=== PATIENT | female | born 2000 | race Caucasian/White ===

== ENCOUNTER 2018-07-26 11:54 | Emergency (ER) | payer SELFPAY ==
[2018-07-26] MEDS ORDERED: BUSPIRONE HCL 10 MG TABLET PO ONE (12:06)
--- NOTE | 2018-07-26 12:10 | ER Document Report ---
ED General - General Chief Complaint: Anxiety Stated Complaint: POSSIBLE PANIC ATTACKS Time Seen by Provider: 07/26/18 12:02 Mode of Arrival: Ambulatory Information source: Patient Notes: Chief complaint: Anxious History of complain:( obtained from----patient) 18 years old female with a hist ory of panic disorder has not been taking any medication, last night had an argument with the boyfriend. Started feeling chest pain and difficulty in breathing, panicked. Therefore present to the ED. Has calmed down a lot. Denies any suicidal or homicidal ideation. Also having vaginal spotting. Wondering whether she is . Onset: As above Duration: sudden Severity: Mild to moderate Quality: As above Context: As above Exacerbating factor and relieving factors: As above REVIEW OF SYSTEMS: CONSTITUTIONAL : Denies fever, chills, or sweats. Denies recent illness. EENT: Denies eye, ear, throat, or mouth pain or symptoms. Denies nasal or sinus congestion or discharge. Denies throat, tongue, or mouth swelling or difficulty swallowing. CARDIOVASCULAR: Denies chest pain. Denies palpitations or racing or irregular heart beat. Denies ankle edema. RESPIRATORY: Denies cough, cold, or chest congestion. Denies shortness of breath, difficulty breathing, or wheezing. GASTROINTESTINAL: Denies distention. Denies nausea, vomiting, or diarrhea. Denies blood in vomitus, stools, or per rectum. Denies black, tarry stools. Denies constipation. GENITOURINARY: Denies difficulty urinating, painful urination, burning, frequency, blood in urine, or discharge. FEMALE GENITOURINARY: Denies vaginal bleeding, heavy or abnormal periods, irregular periods. Denies vaginal discharge or odor. MUSCULOSKELETAL: Denies back or neck pain or stiffness. Denies joint pain or swelling. SKIN: Denies rash, lesions or sores. HEMATOLOGIC : Denies easy bruising or bleeding. LYMPHATIC: Denies swollen, enlarged glands. NEUROLOGICAL: Denies confusion or altered mental status. Denies passing out or loss of consciousness. Denies dizziness or lightheadedness. Denies headache. Denies weakness or paralysis or loss of use of either side. Denies problems with gait or speech. Denies sensory loss, numbness, or tingling. Denies seizures. PSYCHIATRIC: Denies anxiety or stress. Denies depression, suicidal ideation, or homicidal ideation. ALL OTHER SYSTEMS REVIEWED AND NEGATIVE. PHYSICAL EXAMINATION: GENERAL: Well-appearing, well-nourished and in no acute distress. Obese HEAD: Atraumatic, normocephalic. EYES: Pupils equal round and reactive to light, extraocular movements intact, conjunctiva are normal. ENT: Nares patent, oropharynx clear without exudates. Moist mucous membranes. NECK: Normal range of motion, supple without lymphadenopathy LUNGS: Breath sounds clear to auscultation bilaterally and equal. No wheezes rales or rhonchi. HEART: Regular rate and rhythm without murmurs PSYCH: Appears depressed, but not suicidal or homicidal. SKIN: Warm, Dry, normal turgor, no rashes or lesions noted. Dictation was performed using [employer] voice recognition software TRAVEL OUTSIDE OF THE [place] IN LAST 30 DAYS: No - HPI Notes: Dictated - Related Data Allergies/Adverse Reactions: No Known Allergies Allergy (Verified 07/26/18 11:55) Past Medical History - Social History Smoking Status: Never Smoker Frequency of alcohol use: None Drug Abuse: None Lives with: Family Family History: Reviewed & Not Pertinent Review of Systems - Review of Systems Notes: Dictated Physical Exam - Vital signs Vitals: Temp Pulse Resp BP Pulse Ox 98.4 F 83 18 119/85 99 07/26/18 11:59 07/26/18 11:59 07/26/18 11:59 07/26/18 11:59 07/26/18 11:59 - Notes Notes: Dictated Course - Vital Signs Vital signs: Temp Pulse Resp BP Pulse Ox 98.5 F 76 18 116/75 99 07/26/18 14:45 07/26/18 14:45 07/26/18 14:45 07/26/18 14:45 07/26/18 14:45 - Laboratory Result Diagrams: 07/26/18 12:29 Discharge - Discharge Clinical Impression: History of panic attacks Condition: Stable Disposition: HOME, SELF-CARE Instructions: Panic Attack ([facility]) Additional Instructions: *You have been evaluated for panic attacks *Take medication as prescribed *Follow up with mental health, community resources within one week *Return to ED for worsening condition, changes, needs *Return to ED if not better in 24 hours Prescriptions: Buspirone HCl [Buspar 5 mg Tablet] 1 tab PO DAILY #14 tab
[2018-07-26 12:49] LABS: ABSOLUTE LYMPHOCYTES (AUTO) 1.9 10^3/uL (0.5-4.7); ABSOLUTE MONOCYTES (AUTO) 0.4 10^3/uL (0.1-1.4); ABSOLUTE NEUT (AUTO) 4.6 10^3/uL (1.7-8.2); BASOPHILS % (AUTO) 0.6 % (0-2); EOSINOPHILS % (AUTO) 0.7 % (0-6); HEMATOCRIT 44.3 % (36.0-47.0); HEMOGLOBIN 15.2 g/dL (12.0-15.5); LYMPHOCYTES % (AUTO) 26.8 % (13-45); MEAN CORPUSCULAR HEMOGLOBIN 29.6 pg (27.0-33.4); MEAN CORPUSCULAR HGB CONC 34.4 g/dL (32.0-36.0); MEAN CORPUSCULAR VOLUME 86 fl (80-97); MONOCYTES % (AUTO) 5.8 % (3-13); PLATELET COUNT 252 10^3/uL (150-450); RED BLOOD COUNT 5.14 10^6/uL (3.72-5.28); RED CELL DISTRIBUTION WIDTH 13.7 % (11.5-14.0); SEGMENTED NEUTROPHILS % (AUTO) 66.1 % (42-78); TOTAL CELLS COUNTED % (AUTO) 100 %
--- NOTE | 2018-07-26 13:32 | ER Document Report ---
ED General - General Chief Complaint: Anxiety Stated Complaint: POSSIBLE PANIC ATTACKS Time Seen by Provider: 07/26/18 12:02 Mode of Arrival: Ambulatory Information source: Patient Notes: Patient presents emergency department with complaints of panic attacks. She reports history of panic attacks. She just moved here from [place] approximately 1 month ago. She reports last night she had panic attacks which she describes as her hard to breathe usually in her back and then her front she says that this occurred last night for 4 hours back to back. She also reports one this morning when she woke up. TRAVEL OUTSIDE OF THE [place] IN LAST 30 DAYS: No - HPI Onset: Yesterday Quality of pain: No pain Associated symptoms: None Exacerbated by: Denies Relieved by: Denies Similar symptoms previously: Yes Recently seen / treated by doctor: No - Related Data Allergies/Adverse Reactions: No Known Allergies Allergy (Verified 07/26/18 11:55) Past Medical History - General Information source: Patient Last Menstrual Period: current - Social History Smoking Status: Never Smoker Cigarette use (# per day): No Frequency of alcohol use: None Drug Abuse: None Lives with: Family Family History: Reviewed & Not Pertinent Patient has suicidal ideation: No Patient has homicidal ideation: No - Medical History Medical History: Negative Renal/ Medical History: Denies: Hx Peritoneal Dialysis Psychiatric Medical History: Reports: Other - panic attacks Review of Systems - Review of Systems Notes: Review HPI for review of systems., All other systems negative Physical Exam - Vital signs Vitals: Temp Pulse Resp BP Pulse Ox 98.4 F 83 18 119/85 99 07/26/18 11:59 07/26/18 11:59 07/26/18 11:59 07/26/18 11:59 07/26/18 11:59 - Notes Notes: PHYSICAL EXAMINATION: GENERAL: Well-appearing and in no acute distress HEAD: Atraumatic, normocephalic. EYES: Pupils equal round, extraocular movements intact, sclera anicteric, conjunctiva are normal. ENT: nares patent, Moist mucous membranes. NECK: Normal range of motion, supple without lymphadenopathy LUNGS: CTAB and equal. No wheezes rales or rhonchi. HEART: Regular rate and rhythm without murmurs EXTREMITIES: Normal range of motion NEUROLOGICAL: Cranial nerves grossly intact. Normal sensory/motor exams. PSYCH: Normal mood, normal affect. SKIN: Warm, Dry, normal turgor Course - Re-evaluation Re-evalutation: 07/26/18 13:34 Patient is calm. She is worried she might be . Instructed on negative test. Patient will be evaluated by mental health for community resources. She denies suicidal or homicidal ideations. She is living with her boyfriend's family. I feel patient is safe to go home. Dictation of this chart was performed using voice recognition software; therefore, there may be some unintended grammatical errors. 07/26/18 Mental health has been into talk with patient. They have given her community resources. Patient reports BuSpar is very helpful keeping her calm. Patient was instructed on the importance of follow-up with mental health. Was understanding to all instructions. Her boyfriends mother is at the bedside and a positive support system. - Vital Signs Vital signs: Temp Pulse Resp BP Pulse Ox 98.5 F 76 18 116/75 99 07/26/18 14:45 07/26/18 14:45 07/26/18 14:45 07/26/18 14:45 07/26/18 14:45 - Laboratory Result Diagrams: 07/26/18 12:29 Discharge - Discharge Clinical Impression: History of panic attacks Condition: Stable Disposition: HOME, SELF-CARE Instructions: Panic Attack ([facility]) Additional Instructions: *You have been evaluated for panic attacks *Take medication as prescribed *Follow up with mental health, community resources within one week *Return to ED for worsening condition, changes, needs *Return to ED if not better in 24 hours Prescriptions: Buspirone HCl [Buspar 5 mg Tablet] 1 tab PO DAILY #14 tab
[2018-07-26 14:47] VITALS: BP 116/75
--- NOTE | 2018-07-28 13:04 | PSYCHOLOGICAL NOTE ---
Psych Note - Psych Note Date seen by psych provider: 07/26/18 Time seen by psych provider: 14:00 Psych Note: Reason for Consult: anxiety/ panic attacks Consent permissions: Boyfriengabbi's mother at bedside per patient's request 18 years old female with a history of panic disorder has not been taking any medication, last night had an argument with the boyfriend. Started feeling chest pain and difficulty in breathing, panicked. Therefore present to the ED. Has calmed down a lot. Denies any suicidal or homicidal ideation. Patient discloses that she is has a long history of anxiety and depression and has recently moved here from [place]. She reports that last night there was a misunderstanding and started having a panic attack. She reports that she attempted to use multiple coping skills but nothing seemed to help. She confirms she is on any medications for her anxiety and reports that she was on some a long time ago however is unable to remember the name. She states she just moved here locally approximately 1 month ago. Boyfriend's mother reports the patient moved here to help her boyfriend and family to the of the boyfriend's grandmother. She originally was going to be staying with a friend however upon arrival the friend presented an ultimatum and then kicked the patient out. With no place to live the patient has been living with her boyfriend and family. She discloses that this is the first time the patient's boyfriend has had a serious relationship and the patient has felt pushed into a more significant relationship because they are not living together. While there were not breaking up they have been adjusting to the circumstances that were unexpected i.e. living together. While discussing the concerns the patient thought that her boyfriend was breaking up with her which caused a panic attack. She reports the patient is very good at using her coping skills of going out with the animals such as running with her dog or sitting with the horse. She confirms that the patient did have difficulty engaging in some of these coping skills because the weather has been very poor lately (raining). Patient is alert and orientated to person, place, time and circumstance. Mood is euthymic with congruent affect. Clinician notes patient received medication to help assist with calming her and she reports currently she feels much better. Patient denies suicidal homicidal ideation. Delusions are absent behaviors congruent with an intact reality based presentation i.e. organized and linear thought process. Eye contact was well-maintained. Conversational speech is within normal rate, tone and prosody. Intellectual abilities appear to be within the average range. Attention and concentration were good. Insight, judgment, impulse control are currently good. Medication recommendations per [facility] contracted psychiatrist Dr. Kemi OSORIO are as follows BuSpar 5 mg daily 300.00 (F41.9) unspecified anxiety disorder per history provided by patient 311 (F32.9) unspecified depressive disorder per history provided by patient Impression\plan: Patient is cleared from acute psychiatric services. Patient came to [facility] ED with concerns of increased anxiety and panic attacks. Patient has not been on medications recently and reports having difficulty engaging in her normal coping skills. There are significant social factors that have affected patient's anxiety such as moving to [place] 1 month ago and unex pectedly having to live with her boyfriend and his family. Medication recommendations have been provided. Patient was provided a local resource list of area providers including mobile crisis contact information. Dr. Gomez was consulted and the care management this patient cervical attending physicians agreement with recommendations and disposition.
== END 2018-07-26 14:47 | disposition home or self-care (01) ==
LOC: ER 11:54
DX: F41.0 Panic disorder [episodic paroxysmal anxiety] (principal); Z32.02 Encounter for pregnancy test, result negative
CPT/HCPCS: 36415; 84702; 85025; 99283

== ENCOUNTER → 2018-09-12 | Outpatient (CLI) | payer MEDICAID ==
--- NOTE | 2018-09-12 17:09 | RADIOLOGY REPORT (SQ) ---
EXAM DESCRIPTION: U/S [id number] TRNABD 1GES W/ODOP COMPLETED DATE/TIME: 09/12/2018 3:40 pm REASON FOR STUDY: Z34.81 ENCOUNTER FOR SUPRVSN OF NORMAL , FIRST TRIMESTER Z34.81 ENCOUNTE R FOR SUPRVSN OF NORMAL , FIRST TRIM COMPARISON: None. TECHNIQUE: Transvaginal and transabdominal static and realtime grayscale images acquired of the pelv is. Additional selected spectral and color Doppler images recorded. All images stored on PACs. CLINICAL AGE: 9 week 5 day. bHCG: Not available. LIMITATIONS: None. FINDINGS: UTERUS: No masses. No anomalies. GESTATIONAL SAC: Normal shape. Measurement corresponds with a 5 week 5 day gestation. YOLK SAC: Yes. POLE: None present. RIGHT ADNEXA: Normal ovary with normal vascular flow. No adnexal free fluid. No adnexal masses. LEFT ADNEXA: Normal ovary with normal vascular flow. No adnexal free fluid. No adnexal masses. FREE FLUID: None. OTHER: No other significant finding. IMPRESSION: POSSIBLE EARLY INTRAUTERINE . BHCG LEVEL NOT AVAILABLE FOR CORRELATION WITH US FINDINGS. CONSIDER F/U BHCG AND/OR ULTRASOUND FOR VERIFICATION AND TO EXCLUDE ECTOPIC . Trimester of : First - 0 to 13 weeks. TECHNICAL DOCUMENTATION: JOB ID: [id number] [employer]- All Rights Reserved Reading location - IP/workstation name: [email or web address]
== END ==
LOC: RAD 14:49
PROVIDERS: ATTEND Midwife
DX: Z34.81 Encounter for supervision of other normal pregnancy, first trimester (principal)
CPT/HCPCS: 76801

== ENCOUNTER 2018-09-25 15:35 | Emergency (ER) | payer MEDICAID ==
[2018-09-25 16:05] VITALS: BP 123/70
--- NOTE | 2018-09-25 16:50 | ER Document Report ---
ED Medical Screen (RME) - General Chief Complaint: Vag Bleeding, +preg <12wks Stated Complaint: VAGINAL BLEEDING Time Seen by Provider: 09/25/18 16:36 Primary Care Provider: ISABELA BAEZA CNM [Primary Care Provider] - Follow up as needed Mode of Arrival: Ambulatory Information source: Patient TRAVEL OUTSIDE OF THE [place] IN LAST 30 DAYS: No - HPI Notes: 09/25/18 16:36 18 yr old female currently 8 weeks presents for vaginal spotting on and off for the last 5 days and abdominal cramping that started last night. Last menstrual period was July 17, 2018, she was seen by her [employer]POR[employer]ICATION[employer] MANAGER this past Monday, states everything was normal then. Denies any trauma, fevers or chills. Denies any clotting disorders, is not tried any [id number] medication. exam: no distress, Suprapubic tenderness on palpation, no CVA tenderness bilaterally. S1-S2, regular, lungs CTA Will obtain blood work, urinalysis and ultrasound. further evaluation by ER provider in Main ED I have greeted and performed a rapid initial assessment of this patient. A comprehensive ED assessment and evaluation of the patient, analysis of test results and completion of medical decision making process will be conducted by an additional ED providers. - Related Data Allergies/Adverse Reactions: No Known Allergies Allergy (Verified 09/25/18 15:36) Past Medical History - Social History Frequency of alcohol use: None Drug Abuse: None Renal/ Medical History: Denies: Hx Peritoneal Dialysis Physical Exam - Vital signs Vitals: Temp Pulse Resp BP Pulse Ox 98.2 F 70 16 123/70 100 09/25/18 16:03 09/25/18 16:03 09/25/18 16:03 09/25/18 16:03 09/25/18 16:03 Course - Vital Signs Vital signs: Temp Pulse Resp BP Pulse Ox 98.2 F 70 16 123/70 100 09/25/18 16:03 09/25/18 16:03 09/25/18 16:03 09/25/18 16:03 09/25/18 16:03 Doctor's Discharge - Discharge Referrals: ISABELA BAEZA CNM [Primary Care Provider] - Follow up as needed
[2018-09-25 17:13] LABS: ABSOLUTE BASOPHILS # (AUTO) 0.1 10^3/uL (0.0-0.2); ABSOLUTE EOSINOPHILS # (AUTO) 0.2 10^3/uL (0.0-0.6); ABSOLUTE LYMPHOCYTES (AUTO) 2.7 10^3/uL (0.5-4.7); ABSOLUTE NEUT (AUTO) 6.6 10^3/uL (1.7-8.2); BASOPHILS % (AUTO) 0.5 % (0-2); EOSINOPHILS % (AUTO) 1.7 % (0-6); HEMOGLOBIN 13.9 g/dL (12.0-15.5); LYMPHOCYTES % (AUTO) 25.4 % (13-45); MEAN CORPUSCULAR HEMOGLOBIN 29.7 pg (27.0-33.4); MEAN CORPUSCULAR HGB CONC 33.8 g/dL (32.0-36.0); MEAN CORPUSCULAR VOLUME 88 fl (80-97); MONOCYTES % (AUTO) 9.6 % (3-13); PLATELET COUNT 249 10^3/uL (150-450); RED BLOOD COUNT 4.67 10^6/uL (3.72-5.28); RED CELL DISTRIBUTION WIDTH 13.4 % (11.5-14.0); SEGMENTED NEUTROPHILS % (AUTO) 62.8 % (42-78); TOTAL CELLS COUNTED % (AUTO) 100 %; WHITE BLOOD COUNT 10.5 10^3/uL (4.0-10.5)
[2018-09-25 17:16] LABS: APPEARANCE,URINE CLEAR; BILIRUBIN,URINE NEGATIVE (NEGATIVE); COLOR,URINE YELLOW; GLUCOSE, URINE NEGATIVE (NEGATIVE); KETONES,URINE NEGATIVE (NEGATIVE); LEUKOCYTE ESTERASE,URINE NEGATIVE (NEGATIVE); NITRITE,URINE NEGATIVE (NEGATIVE); PROTEIN,URINE NEGATIVE (NEGATIVE); URINE SPECIFIC GRAVITY 1.019; UROBILINOGEN,URINE NEGATIVE mg/dL (<2.0)
[2018-09-25 17:27] LABS: ALANINE AMINOTRANSFERASE 25 U/L (9-52); ALBUMIN 4.3 g/dL (3.5-5.0); ALKALINE PHOSPHATASE 50 U/L (38-126); ANION GAP 10 (5-19); ASPARTATE AMINO TRANSFERASE 16 U/L (14-36); BILIRUBIN,DIRECT 0.2 mg/dL (0.0-0.4); BILIRUBIN,TOTAL 0.2 mg/dL (0.2-1.3); BLOOD UREA NITROGEN 11 mg/dL (7-20); CALCIUM 9.9 mg/dL (8.4-10.2); CARBON DIOXIDE 25 mmol/L (22-30); CHLORIDE 103 mmol/L (98-107); GLUCOSE 72 mg/dL (75-110); POTASSIUM 4.1 mmol/L (3.6-5.0); SODIUM 138.4 mmol/L (137-145); TOTAL PROTEIN 7.3 g/dL (6.3-8.2)
--- NOTE | 2018-09-25 18:11 | RADIOLOGY REPORT (SQ) ---
EXAM DESCRIPTION: U/S OB TRANSVAGINAL W/O DOP COMPLETED DATE/TIME: 09/25/2018 5:47 pm REASON FOR STUDY: 8 weeks preg, vaginal bleeding COMPARISON: 09/12/2018 TECHNIQUE: Transvaginal static and realtime grayscale images acquired of the pelvis. Additional meghan cted spectral and color Doppler images recorded. All images stored on PACs. bHCG: Not available CLINICAL DATES: LMP 07/17/2018. 10 weeks 0 days. LIMITATIONS: None. FINDINGS: FETUS: Single Living intrauterine . ULTRASOUND EGA: 7 weeks 0 days by gestational sac size. ULTRASOUND NICKIE: Not calculated. EFW: Not applicable less than 20 weeks. CRL: pole is not seen. Yolk sac is present. FHR: Not applicable. Beats per minute. SURVEY: Too early to assess. AMNIOTIC FLUID: Adequate amount. PLACENTA: Not yet developed due to early gestation. SUBCHORIONIC BLEED: No SIZE OF BLEED: Not applicable. UTERUS: No masses or anomalies. 8.1 x 6.2 x 4.9 cm. CERVICAL LENGTH: 1.9 cm. Closed. RIGHT ADNEXA: Normal ovary with normal vascular flow. 2.2 x 1.5 x 1.8 cm. No adnexal free fluid. No adnexal masses. LEFT ADNEXA: Normal ovary with normal vascular flow. 3.4 x 2.1 x 2.1 cm. There is a 17 mm complex c yst. No adnexal free fluid. No adnexal masses. FREE FLUID: None. OTHER: No other significant finding. IMPRESSION: There is a gestational sac suggesting an gestation of 7 weeks 0 days. pole is not seen. A yolk sac is present. Follow-up as clinically indicated. TECHNICAL DOCUMENTATION: JOB ID: [id number] [employer]- All Rights Reserved rev-10/27 Reading location - IP/workstation name: [email or web address]
== END 2018-09-25 19:55 | disposition left against medical advice (07) ==
LOC: ER 15:35
DX: O26.859 Spotting complicating pregnancy, unspecified trimester (principal); O26.899 Other specified pregnancy related conditions, unspecified trimester; R10.9 Unspecified abdominal pain; Z3A.00 Weeks of gestation of pregnancy not specified; Z53.20 Procedure and treatment not carried out because of patient's decision for unspecified reasons
CPT/HCPCS: 36415; 76817; 80053; 81001; 84702; 85025; 86900; 86901; 99281